=== PATIENT | male | born 1960 | race Caucasian/White ===

== ENCOUNTER 2017-08-18 12:00 | Day surgery (SDC) | payer BC ==
[~2017-08-18] VITALS: Ht 180.3 cm; Wt 108.2 kg
[2017-08-18 14:28] VITALS: Ht 180.3 cm; Wt 108.2 kg
[2017-08-18] MEDS ORDERED: ASPI-664 PO (14:33)
[2017-08-18] MEDS ORDERED: ATOR40TA68 PO (14:33)
[2017-08-18 15:02] VITALS: BP 123/85; PULSE 75; RESP 18
[2017-08-18] MEDS ORDERED: PROPOFOL 60 ML ONE (15:13)
--- NOTE | 2017-08-18 16:19 | OPPN ---
Date/Time of Note Date/Time of Note DATE: 08/18/17 TIME: 16:14 Proc Note GI Procedure Date 08/18/17 Indication: other (Abdominal pain) Pre-procedure Diagnosis Abdominal pain Post-procedure Diagnosis Impression: Severe erosive/ulcerated esophagitis. Biopsies obtained Hiatal hernia Moderate gastritis. Rule out H. pylori infection. Biopsies obtained Otherwise normal EGD. Plan: PPI therapy Review pathology Follow-up EGD in 8 weeks to assess healing . Procedure Performed: Endoscopy (With biopsies) Surgeon see signature line Regional Program Manager none Anesthesia Type: MAC Anesthesiologist: BRANDI QUIÑONES Tourniquet Time none EBL none Transfusion required none Biopsy 1: Gastric body and antrum Biopsy 2: Distal esophagus Grafts/Implants none Tubes/Drains none Complication(s) none Procedure Description After informed consent, with the patient/relatives understanding the procedure, its indications, potential risks and complications, including but not limited to : allergic reaction, bleeding, perforation or infection, and after all pertinent questions were answered to the patients satisfaction, the patient/ relatives signed witnessed informed consent. Following this, premedication was administered slowly IV push under careful cardiovascular and respiratory monitoring with pulse oximetry, automatic blood pressure, and hospital monitor. Once the sedative effect was achieved the patient was place in the left lateral decubitus, the panendoscope was introduced and advanced under visual control. Careful examination of the upper gastrointestinal tract, both on insertion as well as withdrawal of the instrument disclosing the following findings: ESOPHAGUS: the mucosa of the entire esophagus was carefully examined and showed the following findings: There is severe erythema edema, erosion and ulceration of the mucosa of the distal esophagus. Biopsies were obtained to rule out Leonard's esophagus. Otherwise the mucosa appears within normal limits. There is no evidence of varices, neoplasm, or stricture. Small hiatal Hernia identified. STOMACH: Upon entrance to the stomach air was insufflated, the gastric stout distended normally. The mucosa of the fundus, body and antrum of the stomach was carefully examined both head-on and on retroflexion, and showed the following findings: There is moderate erythema and edema the mucosa of the body and antrum the stomach. Biopsies were obtained to rule out H. pylori infection. Otherwise the mucosa appears within normal limits with no abnormalities. There is no evidence of ulcers or neoplasm. PYLORUS: The pylorus was carefully examined and showed the following findings: the pylorus appears patent and within normal limits, with no evidence of gastric outlet obstruction. DUODENUM: The duodenal mucosa was carefully examined in the duodenal bulb as well as the second portion of the duodenum and showed the following findings: the mucosa appears unremarkable with no evidence of duodenitis, ulcer or neoplasm. Copies To: CC: SIERRA CARTER MD, MORDO MD Aug 18, 2017 16:19
--- NOTE | 2017-08-18 16:21 | OPPN ---
Date/Time of Note Date/Time of Note DATE: 08/18/17 TIME: 16:19 Proc Note GI Procedure Date 08/18/17 Indication: other (CRC screening) Pre-procedure Diagnosis CRC screening Post-procedure Diagnosis Impression: 2 small 3 mm polyps in the rectum. Ablated Suboptimal preparation Moderate-sized internal hemorrhoids Otherwise normal colonoscopy. Plan: Follow up as scheduled] High fiber diet Annual hemoccult stool testing [Review pathology] [Surveillance colonoscopy in years due to poor preparation encountered today . Procedure Performed: Colonoscopy (With ablation) Surgeon SIERRA CARTER MD See signature line Pick Up Truck Driver none Anesthesia Type: MAC Anesthesiologist: BRANDI QUIÑONES Tourniquet Time none EBL none Transfusion required none Biopsy 1: None Polyp 1: 2 polyps rectum Grafts/Implants none Tubes/Drains none Complication(s) none Disposition: home Procedure Description After informed consent, with the patient/relatives understanding the procedure, its indications and potential risks and complications, including but not limited to: Allergic reaction, bleeding, perforation, infection, and after all pertinent questions were answered to the patient's satisfaction, the patient/ relatives signed the witnessed informed consent. Following this, premedication was administered slowly IV push under careful cardiovascular and respiratory monitoring with pulse [employer], automatic blood pressure, and traffic monitor specialist. Once the sedative effect was achieved, the patient was placed in the left lateral decubitus position, digital rectal examination was performed. The colonoscope was then introduced and advanced under visual control throughout all segments of the colon including: the rectum, sigmoid, descending colon, splenic flexure, transverse colon, hepatic flexure, ascending colon and finally reaching the cecum which was clearly identified by transillumination, finger indentation and the ileocecal valve. Careful examination of the mucosa of the lower gastrointestinal tract both on insertion as well as withdrawal of the instrument disclosed the following findings: PREPARATION QUALITY: , [fair, procedure completed] RECTAL EXAM: The anorectal area was visualized examined and digital rectal examination performed with the following findings: No evidence of perirectal disease, no masses. COLONIC MUCOSA: The mucosa of all segments of the colon was carefully examined and showed the following findings: There are 2 small polyps in the rectum. Ablated. The preparation is fair in examination is therefore suboptimal. Moderate-sized internal hemorrhoids are present. Otherwise the examined mucosa appears within normal limits. There is no evidence of inflammatory changes, diverticular formation, other polyps or neoplasms, vascular malformation, or any other abnormality. The instrument was then withdrawn, the patient tolerated the procedure well and was transferred out of the Endoscopy Suite awake and in good condition to continue recovery under observation. Copies To: CC: SIERRA CARTER MD, MORDO MD Aug 18, 2017 16:21
[2017-08-18 16:30] VITALS: BP 115/79; PULSE 62; RESP 18
== END 2017-08-18 18:13 | disposition home or self-care (01) ==
LOC: GIL 12:00
PROVIDERS: ATTEND Internal Medicine Gastroenterology
DX: K92.1 Melena (principal); K21.0 Gastro-esophageal reflux disease with esophagitis; K62.1 Rectal polyp; E66.9 Obesity, unspecified; Z68.33 Body mass index [BMI] 33.0-33.9, adult
CPT/HCPCS: 43239; 45380; 88305; 88312; 88313; Z7610